=== PATIENT | male | born 1960 | race Caucasian/White ===

== ENCOUNTER 2024-10-15 08:33 | Emergency (ER) | payer BC, SELFPAY ==
[2024-10-15 08:46] VITALS: BP 157/69
[2024-10-15 08:50] VITALS: BP 157/69
--- NOTE | 2024-10-15 09:22 | ED.MUSCINJ ---
HPI-Injury
General
Chief Complaint: Musculo-Skeletal Complaint
Source: patient
Exam Limitations: none
Time Seen by Provider: 10/15/24 09:16
History of Present Illness-Injury
Initial Injury comments:
64-year-old male presents complaining of persistent neck discomfort and stiffness. He fell at work 2 weeks ago onto a [place]alis. He had an x-ray done at an urgent care but they suggested he get a CT scan. 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 He
denies paresthesias to the arms. No chest pain or shortness of breath. He is not anticoagulated
Past History
Past History
ED Past Medical History: HTN and Hypercholesterolemia
Social History
Tobacco: Non-smoker
Living: alone
Employment: Employed
Phy Exam
Physical Exam
Physical Exam:
General: Well-appearing male no acute respiratory distress
Musculoskeletal exam: Decreased range of motion of cervical spine mild diffuse paraspinous tenderness no localizing tenderness. Good range of motion to the arms
Neurologic: Good sensation and strength to the arms
Injury Course
Orders/Labs/Results
Orders:
Orders
10/15/24 09:20
CT Cervical Spine W/o Iv Contr Urgent
Comment:
Reason For Exam: fall, neck pain
MDM/Problems Addressed
Differential Diagnosis Includes:
Mechanical fall persistent neck pain recent negative x-rays at urgent care. Sent in for CT of the neck. CT cervical spine ordered. Check for fracture or malalignment.
*Critical Care Note
Total Time (30-74mins, 75-104mins- exclusive of procedures): Not Applicable
Update Note
Update Note:
CT cervical spine negative for acute fracture. Reassured patient. Suspect underlying cervical strain. Recommended warm compresses and NSAIDs. Stable for discharge
ED Attending Note
-
Portions of this chart may have been created with voice recognition software.� Occasional wrong word or��sound alike� substitutions may have occurred due to the inherent limitations of voice recognition software.
Discharge Plan
Departure
Patient Disposition: Home (Routine Discharge)
Date of Disposition: 10/15/24
Time of Disposition: 09:44
Patient with high blood pressure during this ER visit?: No
Discharge Problem:
Cervical strain
Instructions: Muscle and Bone Pain (DC)
Prescriptions:
No Action
aspirin 81 MG tablet,delayed release (DR/EC)
81 mg PO DAILY
amlodipine 10 MG tablet
10 mg PO DAILY
lisinopril 10 MG tablet
10 mg PO DAILY
Hydrochlorothiazide
25 mg PO DAILY
Niacin:
500 mg PO DAILY
hydrocodone-acetaminophen 1 TABLET tablet
1 tab PO Q4HPRN PRN (Reason: Pain) Qty: 12 0RF
cyclobenzaprine 10 MG tablet
10 mg PO TIDPRN PRN (Reason: Pain/ muscle spasm) Qty: 12 0RF
cyclobenzaprine 10 MG tablet
10 mg PO TIDPRN PRN (Reason: back pain) Qty: 30 0RF
Activity Restrictions/Additional Instructions:
As discussed, your CAT scan is negative for fracture. Suspect underlying strain. Recommend ibuprofen and warm compresses. Follow-up with your Workmen's Comp. doctor
Interventions
Interventions:
*Risk Screen - Suicide Last Done: 10/15/24 08:50
*Neglect/Abuse Screening Last Done: 10/15/24 08:50
Discharge Date and Time
Print Language: BRAZILIAN
[2024-10-15 10:37] VITALS: BP 155/65
== END 2024-10-15 10:38 | disposition home or self-care (01) ==
LOC: EMR 08:33
PROVIDERS: EMERGENCY PHYSICIAN Emergency Medicine; FAMILY PHYSICIAN Family Medicine
DX: S16.1XXA Strain of muscle, fascia and tendon at neck level, initial encounter (principal); W19.XXXA Unspecified fall, initial encounter; Y93.89 Activity, other specified; Y92.89 Other specified places as the place of occurrence of the external cause; Y99.0 Civilian activity done for income or pay; I10 Essential (primary) hypertension; E78.00 Pure hypercholesterolemia, unspecified
CPT/HCPCS: 99284; 72125